=== PATIENT | female | born 1995 | race Caucasian/White ===

== ENCOUNTER 2022-01-27 08:00 | Outpatient (NON) | payer OTHER, SELFPAY | END 2022-01-28 10:13 | disposition home or self-care (01) | PROVIDERS: Visit Provider Nurse Practitioner | DX: D22.5 Melanocytic nevi of trunk (principal) | CPT/HCPCS: 88305 ==

== ENCOUNTER → 2022-04-14 13:48 | Outpatient (CLI) | payer OTHER, SELFPAY ==
--- NOTE | ~2022-04-14 | US_ITS ---
EXAMINATION: US transvaginal DATE: 04/14/2022 14:14 INDICATION: Vaginal bleeding between periods. Pelvic pain. Comparison:No prior studies for comparison. TECHNIQUE: Multiple endovaginal sonographic images of the pelvis performed. FINDINGS: The uterus measures 7.4 x 3.3 x 4.5 cm. The endometrial complex measures 4 mm. The right ovary measures 4.4 x 2.6 x 2.6 cm and the left ovary measures 2.3 x 1.2 x 2.1 cm. There ar e small follicles in each ovary. Normal doppler signal in both ovaries. There is free fluid in the right adnexa. There are no abnormal masses seen on either side. IMPRESSION: 1. Unremarkable pelvic ultrasound. Reviewed, dictated and finalized at location A. MACHINE SETUP OPERATOR
== END ==
PROVIDERS: PCP Family Medicine; Visit Provider Nurse Practitioner
DX: R10.2 Pelvic and perineal pain (principal)
CPT/HCPCS: 76830

== ENCOUNTER → 2022-12-14 09:59 | Outpatient (CLI) | payer OTHER, SELFPAY ==
--- NOTE | ~2022-12-14 | US_ITS ---
EXAMINATION: US OB transvaginal DATE: 12/14/2022 10:21 INDICATION: Size less than dates. TECHNIQUE: Real-time transvaginal pelvic ultrasound was performed. COMPARISON: None. FINDINGS: The uterus measures 8.7 x 6.8 x 10.1 cm. There is an intrauterine gestational sac. A yolk sac is iden tified. The crown rump length measures 3.7 cm, which correlates with an estimated gestational age of 10 weeks and 4 day(s) (+/-) 1 week(s) and 0 day(s). heart motion is identified measuring 175 beats per minute (bpm) by M-mode Doppler. There is a small subchorionic hematoma measuring 1.3 x 1.2 x 0.8 cm. The ovaries are not visualized. There is physiologic free fluid in the pelvis. IMPRESSION: 1. Single living intrauterine gestation with estimated date of delivery of 07/08/2023. 2. Small subchorionic hematoma. Reviewed, dictated and finalized at location E. IMPRESSION: 1. Single living intrauterine gestation with estimated date of delivery of 06/14. 2. Small subchorionic hematoma.
== END ==
PROVIDERS: PCP Advanced Practice Midwife; Visit Provider Advanced Practice Midwife
DX: O36.5930 Maternal care for other known or suspected poor fetal growth, third trimester, not applicable or unspecified (principal); Z3A.00 Weeks of gestation of pregnancy not specified
CPT/HCPCS: 76817

== ENCOUNTER → 2023-01-18 08:47 | Outpatient (CLI) | payer OTHER, SELFPAY ==
--- NOTE | ~2023-01-18 | US_ITS ---
EXAMINATION: US OB limited DATE: 01/18/2023 09:07 INDICATION: Maternal carrier for other specified problems, first trimester TECHNIQUE: Real-time ultrasound of the pelvis was performed. The interpreting radiologist was not pre sent for the study. COMPARISON: 12/14/2022 FINDINGS: There is a single living fetus in transverse lie. The placenta is left/anterior. There is a 2.0 x 1.4 cm hypoechoic area abutting the placenta. The measured cervical length is 3.3 cm. ca rdiac activity and movement are noted. heart rate is 143 beats per minute (bpm). The amni otic fluid index is subjectively normal. IMPRESSION: 1. Single living fetus in transverse lie. 2. Probable small subchorionic hematoma, not significantly changed. Reviewed, dictated and finalized at location B. LAYER
== END ==
PROVIDERS: PCP Advanced Practice Midwife; Visit Provider Advanced Practice Midwife
DX: O36.8910 Maternal care for other specified fetal problems, first trimester, not applicable or unspecified (principal); Z3A.00 Weeks of gestation of pregnancy not specified
CPT/HCPCS: 76815

== ENCOUNTER → 2023-02-16 09:43 | Outpatient (CLI) | payer OTHER, SELFPAY ==
--- NOTE | ~2023-02-16 | US_ITS ---
EXAMINATION: US OB /maternal detail DATE: 02/16/2023 10:15 INDICATION: Follow-up subchorionic hematoma TECHNIQUE: Multiple obstetric sonographic images performed. FINDINGS: Comparison to multiple prior studies sequentially, with oldest reviewed study dated 2022. There is a single living fetus in breech presentation. The placenta is posterior without placenta pr evia. Placental margin is 5.4 cm to the cervix. Cervical length is 2.5 cm. Amniotic fluid volume is s ubjectively normal. No subchorionic hematoma identified. cardiac activity and movement is noted with a heart rate of 147 BPM beats per minut e. The following anatomy was identified as normal: 4 chamber heart 3 vessel cord cord insertion kidneys urinary bladder stomach spine diaphragm ventricles cisterna magna cerebellum The following biometric data were obtained: BPD: 48mm corresponds to gestational age 20 weeks 3 days. Head circumference: 176 mm corresponds to gestational age 20 weeks 1 days. Abdominal circumference: 154 mm corresponds to gestational age 20 weeks 4 days. Femur length: 32 mm corresponds to gestational age 20 weeks 0 days. Head circumference to abdominal circumference ratio: 1.14 (normal range for expected gestational age is 1.07-1.25). Estimated weight: 345 grams +/- 52 grams using Hadlock method. IMPRESSION: 1: Single living intrauterine with an estimated gestational age of 19weeks 5days by initial ultrasound measurements, with an EDC of 07/08/2023 in breech presentation. 2. Normal survey. Reviewed, dictated and finalized at location B. LE MAKER IMPRESSION: 1: Single living intrauterine with an estimated gestational age of 19 weeks 5days by initial ultrasound measurements, with an EDC of 07/08/2023 in shefali ech presentation. 2. Normal survey.
== END ==
PROVIDERS: PCP Nurse Practitioner; Visit Provider Nurse Practitioner
DX: O36.8910 Maternal care for other specified fetal problems, first trimester, not applicable or unspecified (principal)
CPT/HCPCS: 76805

== ENCOUNTER → 2023-03-09 08:15 | Outpatient (CLI) | payer OTHER, SELFPAY ==
--- NOTE | ~2023-03-09 | US_ITS ---
US OB limited 03/09/2023 08:52 Indication: Cervical shortening Procedure: High-resolution Limited obstetrical ultrasound utilizing transabdominal and transvaginal t echnique Comparison: Ultrasound dated 02/16/2023 Findings: There is a single living intrauterine in breech presentation. heart rate is 162 BPM. Placenta is posterior measuring 5.5 cm to the internal cervical os. Amniotic fluid volume i s subjectively normal. Cervical length measures 3.6 cm. Impression: 1: Cervical length measures 3.6 cm. Reviewed, dictated and finalized at location L. ARE CASE WORKER Impression: 1: Cervical length measures 3.6 cm.
== END ==
PROVIDERS: PCP Advanced Practice Midwife; Visit Provider Advanced Practice Midwife
DX: O26.879 Cervical shortening, unspecified trimester (principal); Z3A.00 Weeks of gestation of pregnancy not specified
CPT/HCPCS: 76815

== ENCOUNTER 2023-05-22 08:21 | Observation (INO) | payer OTHER, SELFPAY ==
--- NOTE | ~2023-05-22 | US_ITS ---
US OB limited DATE: 05/22/2023 10:33 INDICATION: Amniotic fluid leakage. TECHNIQUE: Real-time imaging and Doppler analysis COMPARISON: 03/09/2023 Limited obstetrical ultrasound examination FINDINGS: Live marcum intrauterine gestation, fetus in vertex presentation with heart rate o f 142 bpm. Posterior left placenta. Amniotic fluid index measures 10.4 cm, at lower normal range. (5th percentile CHANO: 8.3 cm; 95th perce ntile: 24.5 cm). IMPRESSION: Low normal amniotic fluid index: 10.4 cm Reviewed, dictated and finalized at Location A. Reviewed, dictated and finalized at location A. R TUNE UP SPECIALIST
[2023-05-22 08:42] VITALS: BP 126/85; PULSE 85; RESP 16; TEMP 36.6
[2023-05-22 09:00] VITALS: BMI 27.0
--- NOTE | 2023-05-22 09:00 | OBADM ---
This patient, Edilma Live, admitted to the OB room 116 for observation. Patient/family oriented to hospital policies and general routines including ID bracelet, bed and alarms, visiting hours, pain management, procedures, bathroom and other care routines, personal items, smoking policy, room service/diet, and visiting hours. Patient/Family are encouraged to report perceived risks to care and to ask questions if they do not understand what they are told or what they should do.
[2023-05-22 09:30] VITALS: BP 121/80; PULSE 77
[2023-05-22 11:00] VITALS: BP 115/65; PULSE 85
[2023-05-22 11:30] VITALS: BP 115/65; PULSE 80
--- NOTE | 2023-05-23 10:31 | PM.OBTRLD ---
OB - Triage/Final Diagnosis Visit Information Date of evaluation: 05/22/23 Reason for evaluation: other (vaginal bleeding) Comments/Additional reasons for admission: I have assessed the risk for this patient, Edilma Live, and determined that she would benefit from observation care. Evaluation Vital signs: Vital Signs - 24 hr 05/22/23 11:00 05/22/23 11:30 Pulse Rate 85 80 Blood Pressure 115/65 115/65 Comments: Pt presented with vaginal bleeding this am. No bleeding after arrival to unit. Reactive NST. Ultrasound and CHANO WNL. SVE closed (no bleeding on RN's glove), no evidence of ROM or labor. Good movement. No pain. DC home with bleeding, movement, and PTL precautions.
== END 2023-05-22 11:58 | disposition home or self-care (01) ==
PROVIDERS: Admitting Provider Obstetrics & Gynecology Gynecology; PCP Family Medicine; Visit Provider Obstetrics & Gynecology Gynecology
DX: O46.93 Antepartum hemorrhage, unspecified, third trimester (principal); Z3A.33 33 weeks gestation of pregnancy
CPT/HCPCS: 76815; 84112; G0378; G0379

== ENCOUNTER 2023-06-16 09:39 | Outpatient (CLI) | payer OTHER, SELFPAY ==
[2023-06-16] VITALS (8 sets, daily range): BP systolic 104–128; BP diastolic 62–78; PULSE 86–91; BMI 27.2
[2023-06-16 10:09] LABS: Basophils Percent Auto 0.2 % (0.2-1.2); Eosinophils Percent Auto 0.3 % (0-4.4); Hemoglobin 10.9 g/dL (12.0-15.0); Immature Granulocyte Absolute 0.04 K/mm3 (0.00-0.031); Immature Granulocyte Percent A 0.5 % (0-0.5); Lymphocytes Percent Auto 16.1 % (18.3-44.2); Mean Corpuscular HGB Conc 32.1 g/dl (32-36); Mean Corpuscular Hemoglobin 29.4 pg (26-34); Mean Corpuscular Volume 91.6 fl (80-100); Mean Platelet Volume 9.8 fl (7.4-10.4); Monocytes Absolute Auto 0.6 K/mm3 (0.1-0.6); Monocytes Percent Auto 6.5 % (2.6-8.5); Neutrophils Absolute Auto 6.7 K/mm3 (1.3-6.7); Neutrophils Percent Auto 76.4 % (45.5-73.1); Platelet Count Result 266 k/mm3 (150-375); Red Blood Count 3.71 M/mm3 (4.2-5.4); Red Cell Distribution Width 12.8 % (11.5-14.5); White Blood Count 8.7 K/mm3 (4.5-10.0)
[2023-06-16 10:23] LABS: Creatinine Urine 15.7 mg/dL; Total Protein Urine Random 11 mg/dL
[2023-06-16 10:25] LABS: Appearance Urine Clear (Clear); Bacteria Urine 1+ /hpf; Bilirubin Urine Negative (Negative); Blood Urine Negative (Negative); Color Urine Yellow (Yellow); Glucose Urine UA Negative (Negative); Ketones Urine Negative (Negative); Leukocyte Esterase Ur Trace LEU/UL (Negative); Need Manual Microscopic Reviewed; Nitrate Urine Negative (Negative); Non Pathogenic Casts 0-2; Protein Urine Negative (Negative); RBC Urine 0-2 /hpf (0-2); Squamous Epithelial Cell Urine Occasional /hpf (Few); Urobilinogen Urine 0.2 mg/dL (<2.0); pH Urine 6.5 (5.0-9.0)
[2023-06-16 10:27] LABS: Alanine Aminotransferase 13 U/L (6-35); Albumin Level 3.8 g/dL (3.5-5.1); Alkaline Phosphatase 163 U/L (38-126); Anion Gap 4 mmol/L (4-12); Aspartate Amino Transferase 20 U/L (14-36); Bilirubin,Total 0.3 mg/dL (0.2-1.3); Blood Urea Nitrogen 9 mg/dL (7-17); Carbon Dioxide 25 mmol/L (22-30); Chloride 104 mmol/L (98-107); Estimated CRCL calculation 137 ml/min; Estimated Glomerular Filt Rate > 60; Glucose 107 mg/dL (65-110); Potassium 3.9 mmol/L (3.4-5.0); Sodium 133 mmol/L (137-145); Uric Acid 3.6 mg/dL (2.5-7.5)
[2023-06-16 10:28] LABS: Specific Grav Ur 1.004 (1.001-1.035)
[2023-06-16 10:56] LABS: Add Urine Microscopic? YES
--- NOTE | 2023-06-16 16:31 | PM.OBTRLD ---
OB - Triage/Final Diagnosis Visit Information Date of evaluation: 06/16/23 Comments/Additional reasons for admission: I have assessed the risk for this patient, Edilma Live, and determined that she would benefit from observation care. Evaluation Laboratory results: Laboratory Tests 06/16/23 09:59 WBC 8.7 RBC 3.71 L Hgb 10.9 L Hct 34.0 L MCV 91.6 MCH 29.4 MCHC 32.1 RDW 12.8 Plt Count 266 MPV 9.8 Immature Gran % (Auto) 0.5 Neut % (Auto) 76.4 H Lymph % (Auto) 16.1 L [place] % (Auto) 6.5 Eos % (Auto) 0.3 Baso % (Auto) 0.2 Lymph # (Auto) 1.40 [place] # (Auto) 0.6 Eos # (Auto) 0.0 Baso # (Auto) 0.0 Abs Immat Gran (auto) 0.04 H Absolute Neuts (auto) 6.7 Absolute Nucleated RBC 0.000 Nucleated RBC % 0.0 Sodium 133 L Potassium 3.9 Chloride 104 Carbon Dioxide 25 Anion Gap 4 L BUN 9 Creatinine 0.50 L Estim Creat Clear Calc 137 Estimated GFR > 60 Glucose 107 Uric Acid 3.6 Calcium 9.0 Total Bilirubin 0.3 AST 20 ALT 13 Alkaline Phosphatase 163 H Total Protein 7.0 Albumin 3.8 Urine Color Yellow Urine Appearance Clear Urine pH 6.5 Ur Specific [place] 1.004 Urine Protein Negative Urine Glucose (UA) Negative Urine Ketones Negative Ur Blood (Man) Negative Urine Nitrate Negative Urine Bilirubin Negative Urine Urobilinogen 0.2 Add Ur Microanalysis Reviewed Leukocyte Esterase Rfl Trace H Urine RBC 0-2 Urine WBC 6-10 H Ur Squamous Epith Cells Occasional Urine Bacteria 1+ H Urine Casts 0-2 U Random Total Protein 11 Urine Creatinine 15.7 Protein/Creat Ratio 2 0.70 H Vital signs: Vital Signs - 24 hr 06/16/23 10:07 06/16/23 10:19 06/16/23 10:30 Pulse Rate 89 91 91 Blood Pressure 128/78 123/76 104/62 Blood Pressure [Right Arm] 06/16/23 10:45 06/16/23 11:00 06/16/23 11:15 Pulse Rate 87 86 89 Blood Pressure 115/67 118/68 121/71 Blood Pressure [Right Arm] 06/16/23 10:13 06/16/23 11:30 Pulse Rate 90 87 Blood Pressure Blood Pressure [Right Arm] 128/78 121/71 Comments: VSS, all Bps WNL per RN. NST reactive per RN. Labs WNL, (UPC 0.7 however neg protein on UA). Plan 24 hour urine protein collection to be brought back 06/17/23 and BP check with NST at that time.
== END 2023-06-16 11:38 | disposition home or self-care (01) ==
LOC: ANHOBOP 09:42 → ANHOBPP 09:43
PROVIDERS: Visit Provider Advanced Practice Midwife
DX: O13.9 Gestational [pregnancy-induced] hypertension without significant proteinuria, unspecified trimester (principal); Z3A.00 Weeks of gestation of pregnancy not specified
CPT/HCPCS: 36415; 59025; 80053; 81001; 81050; 82570; 82575; 84156; 84550; 85025; 87086; 99199

== ENCOUNTER 2023-06-17 10:28 | Outpatient (RCR) | payer OTHER, SELFPAY ==
[2023-05-04 07:05] VITALS: BP 118/68; PULSE 83
[2023-06-17 11:05] VITALS: BP 119/68; PULSE 90
== END 2023-08-02 23:59 | disposition home or self-care (01) ==
LOC: ANHOBOP 10:28
PROVIDERS: PCP Family Medicine; Visit Provider Obstetrics & Gynecology Gynecology
DX: O36.8130 Decreased fetal movements, third trimester, not applicable or unspecified (principal); Z3A.30 30 weeks gestation of pregnancy; Z3A.37 37 weeks gestation of pregnancy
CPT/HCPCS: 59025

== ENCOUNTER 2023-06-17 10:28 | Outpatient (CLI) | payer OTHER, SELFPAY ==
[2023-06-17 10:38] VITALS: BMI 27.2
[2023-06-17 11:16] LABS: Collection Time Urine 24 HOURS
[2023-06-17 11:19] LABS: Total Volume 24 Hour Urine 1900 ml
[2023-06-17 11:25] LABS: Creatinine Clearance Urine 138.4 ml/min (75-125); Creatinine Urine 57.6 mg/dL; Patient Weight 174 Lbs; Total Protein Urine 24 Hr 133 mg/24hr (28-141); Total Protein Urine Random 7 mg/dL
== END 2023-06-17 10:29 | disposition home or self-care (01) ==
LOC: ANHOBOP 10:35
PROVIDERS: Visit Provider Advanced Practice Midwife
DX: Z34.90 Encounter for supervision of normal pregnancy, unspecified, unspecified trimester (principal); Z3A.00 Weeks of gestation of pregnancy not specified
CPT/HCPCS: 81050; 82575; 84156

== ENCOUNTER 2023-07-05 17:04 | Inpatient (IN) | payer OTHER, SELFPAY ==
[2023-07-05] VITALS (16 sets, daily range): BP systolic 110–133; BP diastolic 62–82; PULSE 67–92; TEMP 36.4–36.5; BMI 27.8
--- NOTE | 2023-07-05 17:30 | P.PNAN_ITS ---
Anes - Eval Pre Procedure Procedure: labor epidural Date/Time: 07/05/23 17:30 Pre Op Diagnosis: Induction of Labor Patient Data Age: 28 Gender: F Height: Weight: Allergies Allergy/AdvReac Type Severity Reaction Status Date / Time No Known Allergies Allergy Verified 06/08/23 12:19 Home Medications Medication Instructions Recorded Confirmed Type ergocalciferol (vitamin D2) 1,250 50,000 unit PO WEEKLY 05/22/23 06/16/23 History mcg (50,000 unit) capsule ferrous sulfate 325 mg (65 mg 325 mg PO BID 05/22/23 06/16/23 History iron) tablet vit no.95-ferrous 1 tablet PO DAILY 05/22/23 06/16/23 History fumarate 28 mg-folic acid 800 mcg tablet () Patient hx anesthesia problems: none Family hx anesthesia problems: none Results Review: All pre-operative results and documents have been reviewed as part of the pre- operative evaluation. PMF Family History Family History Other No pertinent family history Social History Social History Substance use: never Spiritual care concerns: No Exam Day of Procedure 07/05/23 17:30 Patient weight: overweight Heart: regular rate and rhythm Lungs: normal air movement Airway: Mallampati scale Neurological: alert and oriented
[2023-07-05 18:02] LABS: Basophils Percent Auto 0.3 % (0.2-1.2); Eosinophils Percent Auto 0.3 % (0-4.4); Immature Granulocyte Absolute 0.05 K/mm3 (0.00-0.031); Immature Granulocyte Percent A 0.5 % (0-0.5); Lymphocytes Absolute Auto 1.86 K/mm3 (0.9-3.2); Lymphocytes Percent Auto 17.6 % (18.3-44.2); Mean Corpuscular HGB Conc 33.3 g/dl (32-36); Mean Corpuscular Hemoglobin 29.6 pg (26-34); Mean Corpuscular Volume 88.7 fl (80-100); Mean Platelet Volume 10.2 fl (7.4-10.4); Monocytes Absolute Auto 0.7 K/mm3 (0.1-0.6); Monocytes Percent Auto 6.9 % (2.6-8.5); Neutrophils Absolute Auto 7.9 K/mm3 (1.3-6.7); Neutrophils Percent Auto 74.4 % (45.5-73.1); Platelet Count Result 260 k/mm3 (150-375); Red Blood Count 3.72 M/mm3 (4.2-5.4); Red Cell Distribution Width 13.1 % (11.5-14.5); White Blood Count 10.6 K/mm3 (4.5-10.0)
[2023-07-05] MEDS: miSOPROStol 25 MCG TABLET SUBLINGUAL (18:09)
[2023-07-05] MEDS: miSOPROStol 25 MCG TABLET 50 MCG SUBLINGUAL (22:29)
[2023-07-06] VITALS (125 sets, daily range): BP systolic 91–144; BP diastolic 53–95; PULSE 58–136; RESP 16; TEMP 36.6–37.3; O2SAT 94–100
[2023-07-06] MEDS: LACTATED RINGERS 1,000 ML 125 ML IV CONT ×2 (01:36→02:18)
[2023-07-06] MEDS: ONDANSETRON INJ 4 MG/2 ML VIAL IV PUSH (02:16)
[2023-07-06] MEDS: fentaNYL CITRATE INJ (*CRX) 100 MCG/2 ML VIAL 50 MCG IV PUSH (02:16)
[2023-07-06] MEDS: OXYTOCIN 30 UNITS/NS 500 ML 30 UNITS/500 ML BAG IV CONT (03:20)
--- NOTE | 2023-07-06 07:49 | WPDOBADMIT ---
Obstetrics - Admit Note Admission Note: record reviewed. No pertinent additions to the history and/or any subsequent changes in the physical findings that are not consistent with the expected course of the were found. Additions to the history and/or subsequent changes in the physical findings follow. None.
--- NOTE | 2023-07-06 07:49 | PM.OBPNLAB ---
Pain Control Date/time seen: Called overnight at 0436 and 0644 with updates on pt progress. No interventions required overnight. 07/06/23 07:15- CNM to bedside Pain control: tolerating well and epidural Pelvic Exam Dilation (cm): 10 Effacement (%): 100 station: +2 Comments: pushing with ctx Contractions Monitor mode: External Contraction pattern: Regular Contraction phase: Contraction Contraction intensity: Strong/Firm Status status: Category ll Comments: Cat 1 prior to pushing Assessment and Plan Assessment: active labor Plan: continuous present management Comments: Pt pushing on CNM arrival. Pushing well. Anticipate vaginal . Dr. Nielsen updated.
--- NOTE | 2023-07-06 07:51 | P.PCNOB_ITS ---
OB - Vaginal Delivery Note Procedure Delivery date: 07/06/23 Induction method: Per Misoprostol Protocol and Per Pitocin Protocol Delivery augmentation: Pitocin Delivery monitor: External FHT and External Uterine Route of delivery: Episiotomy description: None Laceration Description: Perineal - 2nd Degree, Vaginal (sidewall x 2) and Labial (left) Delivery repair: vicryl Specimen: No Quantitative Blood Loss (ml): 225 Anesthesia type: Epidural Disposition: Floor Complications: No immediate complications Narrative: Edilma arrived for elective induction of labor. She received 2 doses of Cytote c followed by Pitocin. Her membranes ruptured spontaneously. She make which changed to complete dilation and pushed well with contractions. She brought the head to a complete crown after the delivery of the head there was good restitution and easy delivery of the anterior and posterior shoulders. The was placed on the maternal abdomen and dried and stimulated by nursery staff. Just before 1 minute of life, the cord was doubly clamped and cut. The baby was taken to the warmer. Cord blood, cord segment, and cord gases were obtained. Bilateral vaginal sidewall tears as well as a second-degree laceration repaired in the usual fashion. There was excellent hemostasis. Uterine tone remained firm throughout. All delivery counts correct. Baby Date of : 07/06/23 Time of : 08:18 Weeks of gestation at delivery: 39 gender: Female Weight (pounds): 7 Weight (ounces): 4 presentation: vertex position: Left Occiput Anterior Placenta delivery description: Spontaneous Cord Vessel Description: 3 Vessels and Delayed Cord Clamping score one minute: 7 score five minutes: 9
[2023-07-06] MEDS: OXYTOCIN 30 UNITS/NS 500 ML 30 UNITS/500 ML BAG 125 UNITS IV CONT (08:52)
--- NOTE | 2023-07-06 09:10 | PM.OBDSVD ---
DS: Admitting Diagnosis Discharge Date 07/07/23 Admitting Diagnosis 28 y.o. at term . Elective IOL Hx Anxiety and Depression. Anemia Hx abnormal pap DS: Discharge Diagnosis Discharge Diagnosis (1) (normal spontaneous vaginal delivery): Code(s): O80 - Encounter for full-term uncomplicated delivery Status: Acute (2) Mother currently breast-feeding: Code(s): Z39.1 - Encounter for care and examination of lactating mother Status: Acute OB - DS: Summary Hospital Course Hospital Course: Uncomplicated OB Procedures : Ultrasound OB Procedures Intrapartum: Spontaneous Vag Delivery OB Procedures: : None Peripartum Data Infant Delivery Method: Natural Vaginal Laceration Description: Perineal - 2nd Degree, Vaginal (sidewall x 2) and Labial (left) Episiotomy description: None complications: none Status at Discharge Functional status at discharge: independent ambulation Overall status at discharge: patient is progressing back to baseline Time Spent with Patient Time attestation: Total time spent providing and/or coordinating discharge services: Exam Narrative: Alert and oriented. Mood is pleasant and cooperative. Perineum with minimal edema. Fundus firm and below umbilicus. Const: General: cooperative, healthy appearing, no acute distress and alert Orientation/consciousness: patient oriented x3 Limitations: no limitations Chest: Other: Nipples tender Resp: Effort & Inspection: normal respiratory effort and able to speak in complete sentences Auscultation: clear to auscultation bilaterally Cardio: Rate: regular rate GI: Inspection: normal to inspection Auscultation: normal bowel sounds : General: Yes bladder normal to palpation External Female Exam: other (lochia WNL) Bimanual exam- vagina & uterus: bladder normal to palpation Other: Fundus firm and below U Skin: General skin exam: normal color and no rashes or lesions noted Neuro: General: patient oriented x3 and moves all extremities Cognition (Neuro): normal cognition Extrem: General: normal to inspection and no calf tenderness Psych: Appearance: grossly normal Mental Status: mental status grossly normal Affect: normal affect Thought process: Normal thought process present DS: Data Data Completed and Pending Labs on day of discharge: Labs from last 24 hours 07/05/23 17:45 WBC 10.6 H RBC 3.72 L Hgb 11.0 L Hct 33.0 L MCV 88.7 MCH 29.6 MCHC 33.3 RDW 13.1 Plt Count 260 MPV 10.2 Immature Gran % (Auto) 0.5 Neut % (Auto) 74.4 H Lymph % (Auto) 17.[address] [place] % (Auto) 6.9 Eos % (Auto) 0.3 Baso % (Auto) 0.3 Lymph # (Auto) 1.86 [place] # (Auto) 0.7 H Eos # (Auto) 0.0 Baso # (Auto) 0.0 Abs Immat Gran (auto) 0.05 H Absolute Neuts (auto) 7.9 H Absolute Nucleated RBC 0.000 Nucleated RBC % 0.0 RPR Pending Blood Type O Positive Antibody Screen Negative Discharge Plan Discharge Attending physician on discharge: Fabiola Nielsen Discharging Clinician: Gela Villagomez Anticipated Discharge Date/Time: 07/07/23 13:00 Patient Disposition: Home, Self-Care Activity: may drive after 2 weeks and pelvic rest Diet: as tolerated and regular Wound Care Instructions: follow printed instructions Discharge Instructions: Continue taking your vitamin and any other supplements as previously directed (Examples: Iron, Vitamin D). You may take Tylenol 1000mg over the counter every 6 hours as needed for pain. Do not exceed 4000mg of Tylenol daily. You may continue using tucks pads and dermoplast spray if needed for a few more days. Depression Notify provider for signs or symptoms. These may include- Feelings: Feeling anxious, angry, hopeless, guilt, or loss of interest/pleasure in activities you normally enjoy. Mood swings or panic attacks. General: Extreme fatigue, loss of your appetite,
[2023-07-06] MEDS: IBUPROFEN 600 MG TABLET PO ×2 (10:30→20:22)
[2023-07-06] MEDS: BENZOCAINE 20% AER SPR (*SP) 56 GM CAN 1 SPRAY TOPICAL (12:40)
[2023-07-06] MEDS: WITCH HAZEL 40 PADS 1 PAD TOPICAL (12:41)
[2023-07-06] MEDS: ACETAMINOPHEN 325 MG TABLET 650 MG PO (13:01)
--- NOTE | 2023-07-06 13:19 | OBPPTRN ---
1225 Patient transferred to post room #290 via W/C. Support person present. Oriented to unit, room, information board, rooming in, admission packet and security measures. Patient verbalizes understanding.
--- NOTE | 2023-07-06 13:47 | PC.NURSE ---
[id number] Introductions were made, then consulted with patient to assess needs related to . Nursery RN is present and is assisting mother with holding her breast and latching her infant to the left breast using cross cradle positioning. is latched effectively and when detaches there's a basilio on the areola where had been previously sucked. Mother works well with her infant latching to the right breast using a V-hold with her fingers using the cradle hold. Mother denies pain. Resources provided for services while inpatient on the PP floor.
--- NOTE | 2023-07-06 16:40 | PC.NURSE ---
[id number] Consulted with patient to assess needs related to . Encouraged understanding the benefits of skin to skin, responding to feeding cues, frequencies of feeding 8-12 times in 24 hours (approximately 2-3 hours), duration of feedings, milk production, intake/output feeding sheet and signs of adequate intake encouraging swallowing at the breast. Reviewed positioning and alignment, supporting breast, off-centered (asymmetrical latch) and leading with the chin with big, open, wide gape using the sandwich hold, then latched optimally to the left breast in cross cradle position. Education given to the mother of how to visualize the suckling (with good rocking jaw motion) swallows (dropping of the lower jaw) and how to listen for drinking at the breast (the ka sound) which infant demonstrated well. The was able to maintain latch without discomfort to mother. Nipple care reviewed with optimal latch, good positioning and using clean hands when touching her breast. Resources used to facilitate learning were used from the visual handouts/ tool/mom and baby guide. Mother voiced understanding of the education shared, to call for assistance if the does not latch or if there is discomfort with . Reported to the Primary RN.
[2023-07-06 17:14] LABS: Rapid Plasma Reagin Non-Reactive (NonReactive)
[2023-07-06] MEDS: POLYSACCHARIDE IRON COMPLEX 150 MG CAPSULE PO (20:22)
[2023-07-07 04:30] VITALS: BP 113/67; PULSE 70; RESP 16; TEMP 36.7; O2SAT 97
[2023-07-07 05:09] LABS: Hemoglobin 10.2 g/dL (12.0-15.0)
[2023-07-07 07:15] VITALS: BP 110/64; PULSE 71; RESP 16; TEMP 37.4; O2SAT 97
--- NOTE | 2023-07-07 07:35 | P.PNOB_ITS ---
OB - PN: Subj Subjective Date/time seen: 07/07/23 07:20 Interval history: Doing well. Urinating without difficulty. Denies passing any large clots. Denies dizziness with ambulating. Tolerating po food and fluids. Bonding with . Patient comments: pain well controlled Jordan baby status: doing well Jordan feeding status: breast and bottle feeding OB - PN: Obj Data Labs 07/07/23 04:55 Labs: Laboratory Results - last 24 hr 07/05/23 07/07/23 17:45 04:55 Hgb 10.2 L Hct 32.0 L RPR Non-reactive OB - PN A/P Assessment and Plan (1) (normal spontaneous vaginal delivery): Code(s): O80 - Encounter for full-term uncomplicated delivery Status: Acute (2) Mother currently breast-feeding: Code(s): Z39.1 - Encounter for care and examination of lactating mother Status: Acute Plan day: 1 Plan: discharge home Comments: Desires DC home today. Time Spent With Patient Time: Total time spent is greater than 50% in coordination of care (as documented) at patient's floor/unit and/or counseling patient: Review of Systems Review of Systems: All systems reviewed & are unremarkable except as noted in HPI and below Exam Narrative: Alert and oriented. Mood is pleasant and cooperative. Perineum with minimal edema. Fundus firm and below umbilicus. Const: General: cooperative, healthy appearing, no acute distress and alert Orientation/consciousness: patient oriented x3 Limitations: no limitations Chest: Other: Nipples tender Resp: Effort & Inspection: normal respiratory effort and able to speak in complete sentences Auscultation: clear to auscultation bilaterally Cardio: Rate: regular rate GI: Inspection: normal to inspection Auscultation: normal bowel sounds : General: Yes bladder normal to palpation External Female Exam: other (lochia WNL) Bimanual exam- vagina & uterus: bladder normal to palpation Other: Fundus firm and below U Skin: General skin exam: normal color and no rashes or lesions noted Neuro: General: patient oriented x3 and moves all extremities Cognition (Neuro): normal cognition Extrem: General: normal to inspection and no calf tenderness Psych: Appearance: grossly normal Mental Status: mental status grossly normal Affect: normal affect Thought process: Normal thought process pr esent
--- NOTE | 2023-07-07 09:36 | WPDANLDPN2 ---
Anes-Prog Note L&D Date/Time: 07/07/23 09:36 Neuro status: Neuro function grossly intact. Cardiovascular status: normal Respiratory status: normal Airway patency: baseline Mental status: baseline Post-Op hydration status: normal Vital Signs: Last Vital Signs Temp 37.4 C 07/07/23 07:15 Pulse 71 07/07/23 07:15 Resp 16 07/07/23 07:15 BP 110/64 07/07/23 07:15 Pulse Ox 97 07/07/23 07:15 O2 Del Method Room Air 07/06/23 19:30 Pain score (VAS): 0 Post-procedural complaints: none Patient feedback: Patient satisfied with anesthetic care.
[2023-07-07] MEDS: MULTIVIT/MIN/PREN/FOL AC/IRON TABLET 1 TAB PO (11:01)
--- NOTE | 2023-07-07 16:28 | PC.NURSE ---
[id number] Purposefully rounded to assess for needs. Mother shared that she has decided to pump and feed EBM to her infant and has supplemented with 3 formula bottles during the night. Infant has had appropriate feedings in the last 24 hours meets the outcomes for weight, output, blood sugar and jaundice at this time. Reinforced understanding of milk production, transition of milk, signs of adequate intake, transition of stool, prevention/relief of engorgement, plugged ducts, mastitis, responsive watching for feeding cues, the different methods of stimulating infant to breastfeed 1-3 hours after the start of the last feeding, community resources, and when to call a provider using the resource of the feeding sheet along with the mom and baby guide. Mother voiced understanding of the information shared, is confident to continue feeding her infant at home, when to call for assistance, denies any additional assistance or education at this time. Reported to the Primary RN.
--- NOTE | 2023-07-07 16:59 | PC.NURSE ---
1100 Patient viewed the discharge video Mother & Baby Care, The First Two Weeks . Patient was given the opportunity and encouraged to ask questions. Patient verbalized understanding of information shared and has been given the mother/baby guide for home reference.
[2023-07-09 11:24] VITALS: BP 124/71; PULSE 78; RESP 18; TEMP 36.8; O2SAT 100
== END 2023-07-07 15:35 | disposition home or self-care (01) | DRG 807 ==
LOC: ANHLDR 07-06 09:12 → ANHOB2 07-06 12:43
PROVIDERS: Advanced Practice Midwife; Admitting Provider Obstetrics & Gynecology Gynecology; PCP Family Medicine; Visit Provider Obstetrics & Gynecology Gynecology
DX: O99.02 Anemia complicating childbirth (principal); Z37.0 Single live birth; O70.1 Second degree perineal laceration during delivery; O99.344 Other mental disorders complicating childbirth; F41.8 Other specified anxiety disorders; D64.9 Anemia, unspecified; Z3A.39 39 weeks gestation of pregnancy
CPT/HCPCS: 36415; 85014; 85018; 85025; 86592; 86850; 86900; 86901; A9270; J2405; J2590; J2795; J3010; J7120

== ENCOUNTER 2023-10-27 09:24 | Emergency (ER) | payer OTHER, SELFPAY ==
--- NOTE | ~2023-10-27 | US_ITS ---
Limited ABDOMINAL ULTRASOUND Ordering provider: Trent Monge PA-C History: . Epigastric pain with eating . Comparison: None. FINDINGS: LIVER: Normal size and echotexture. The liver measures 15.8 cm. No focal hepatic lesions or perihepat ic fluid collections are identified. Normal flow of the portal vein. GALLBLADDER: Unremarkable. No evidence for stones, sludge, gallbladder wall thickening or pericholecy stic fluid collections. Wall measures 2.3 mm. A negative sonographic Merrill's sign was noted. BILIARY DUCTS: No evidence for intra or extrahepatic biliary dilation. Common bile duct measures 3.3 mm in diameter which is within normal limits. PANCREAS: Normal echotexture and size. SPLEEN: Normal size, echotexture and contour and measures cm in length. KIDNEYS: Right measures 11.1x 3.9 x 4.2 cm. there is no evidence for hydronephrosis, solid renal mass , renal calculi or perinephric fluid collections. No renal cysts. FREE FLUID: None. IMPRESSION: Unremarkable limited ultrasound of the abdomen. Reviewed, dictated and finalized at location A.
--- NOTE | ~2023-10-27 | XR_ITS ---
XR chest 2V Ordering provider: Elisabet Bains MD History: 28 years Female with . LOWER CHEST PAIN/UPPER ABD PAIN, HX ANXIETY . Comparison: None. FINDINGS: MEDIASTINUM: The cardiac silhouette is not enlarged. LUNGS: No infiltrates, effusions or pneumothorax. OTHER: No free air under the diaphragm. IMPRESSION: No acute cardiopulmonary pathology. Reviewed, dictated and finalized at location A.
--- NOTE | 2023-10-27 09:25 | ECG_ITS ---
Test Date: 2023-10-27 09:30:31 Measurements Intervals [place] Rate: 116 P: 85 ND: 160 QRS: 102 QRSD: 84 T: 69 QT: 341 QTc: 475 Interpretive Statements SINUS TACHYCARDIA MARKED RIGHT AXIS DEVIATION [QRS AXIS > 100] NONSPECIFIC ST & T-WAVE ABNORMALITY No previous ECG available for comparison Electronically Signed On 10-27-2023 09:31:38 CDT by Eladia Sampson M.D.
[2023-10-27 09:32] VITALS: BP 123/74; PULSE 100; RESP 16; TEMP 36.4; O2SAT 100
[2023-10-27 09:46] LABS: Basophils Percent Auto 0.3 % (0.2-1.2); Eosinophils Absolute Auto 0.1 K/mm3 (0-0.3); Eosinophils Percent Auto 0.9 % (0-4.4); Hematocrit 37.6 % (37.0-47.0); Hemoglobin 12.4 g/dL (12.0-15.0); Immature Granulocyte Absolute 0.01 K/mm3 (0.00-0.031); Immature Granulocyte Percent A 0.1 % (0-0.5); Lymphocytes Absolute Auto 1.64 K/mm3 (0.9-3.2); Lymphocytes Percent Auto 23.4 % (18.3-44.2); Mean Corpuscular Hemoglobin 29.2 pg (26-34); Mean Corpuscular Volume 88.7 fl (80-100); Mean Platelet Volume 10.1 fl (7.4-10.4); Monocytes Absolute Auto 0.3 K/mm3 (0.1-0.6); Monocytes Percent Auto 4.3 % (2.6-8.5); Platelet Count Result 330 k/mm3 (150-375); Red Blood Count 4.24 M/mm3 (4.2-5.4); Red Cell Distribution Width 12.4 % (11.5-14.5)
[2023-10-27 09:55] LABS: Alanine Aminotransferase 13 U/L (6-35); Albumin Level 4.8 g/dL (3.5-5.1); Alkaline Phosphatase 90 U/L (38-126); Anion Gap 14 mmol/L (4-12); Aspartate Amino Transferase 20 U/L (14-36); Bilirubin,Total 0.3 mg/dL (0.2-1.3); Blood Urea Nitrogen 10 mg/dL (7-17); Calcium 9.7 mg/dL (8.4-10.2); Carbon Dioxide 23 mmol/L (22-30); Chloride 104 mmol/L (98-107); Estimated CRCL calculation 116 ml/min; Estimated Glomerular Filt Rate > 60; Glucose 105 mg/dL (65-110); Lipase 66 U/L (23-300); Potassium 3.9 mmol/L (3.4-5.0); Sodium 141 mmol/L (137-145)
[2023-10-27 10:13] LABS: INR 0.9; Troponin I < 0.012 ng/mL (0.000-0.034)
[2023-10-27 10:14] LABS: Partial Thromboplastin Time 30.8 Seconds (22.3-36.8)
[2023-10-27 11:01] VITALS: BP 122/79; PULSE 72; RESP 12; O2SAT 100
--- NOTE | 2023-10-27 11:13 | ED.CHESTPAIN ---
HPI - Chest Pain General Chief Complaint: Chest Pain Stated Complaint: chest pain caused by anxiety Time Seen by Provider: 10/27/23 10:54 Source: patient Mode of arrival: ambulatory Limitations: no limitations History of Present Illness HPI narrative: This is a 28-year-old female who presents to the ED for chief complaint of chest pain and abdominal pain. States that she has had abdominal pain over the last several months, worse in the epigastrium. States she was recently started on omeprazole and is still waiting for that to kind of kick in. Pain is worsened with eating anything. associated nausea but no vomiting. s/p delivery of 1st child in June of 2023 and has been dealing with a lot of anxiety. States that any time she feels ill it is very easy to go into a panic attack. States that she had a panic attack this morning and was having chest pain associated. States that it lasted for nearly 2 hours but has subsided at this point. Denies fevers, chills , cough back pain, numbness, weakness GI bleeding symptoms. Related Data Home Medications Medication Instructions Recorded Confirmed ergocalciferol (vitamin D2) 1,250 50,000 unit PO WEEKLY 05/22/23 06/16/23 mcg (50,000 unit) capsule ferrous sulfate 325 mg (65 mg 325 mg PO BID 05/22/23 06/16/23 iron) tablet vit no.95-ferrous 1 tablet PO DAILY 05/22/23 06/16/23 fumarate 28 mg-folic acid 800 mcg tablet () Allergies Allergy/AdvReac Type Severity Reaction Status Date / Time No Known Allergies Allergy Verified 06/08/23 12:19 Review of Systems Review of Systems: All systems as dictated in [facility] Family History Family History Other No pertinent family history Social History Social History Smoking status: Never smoker Second hand tobacco smoke exposure: No Substance use: never Do You Feel Safe in your Home?: Yes Lack of Transportation: No Lack of Food: Never True Current Housing: I Do Not Have Housing Concerned About Future Housing: No Difficulty Paying Gas/Electric Bills: No Difficulty Paying for Meds: No Currently Unemployed: No Education: Trade/Vocational Certificate Difficulty w/ Childcare or Family Care: No Spiritual care concerns: No Exam Narrative: GENERAL: Well-appearing, well-nourished, and in no acute distress. HEAD: Normocephalic, atraumatic. EYES: PERRLA and EOMI. ENT: Nares clear, no rhinorrhea or epistaxis. Mucous membranes moist. Oropharynx without tonsillar hypertrophy exudate or other lesions. NECK: Supple. No adenopathy or masses. CHEST: No respiratory distress. Clear to auscultation. No wheezes rales or rhonchi HEART: Regular rate and rhythm. No murmur heard. Normal peripheral pulses. ABDOMEN: Soft, nontender, nondistended, normal active bowel sounds. MSK: Normal range of motion. No edema. SKIN: Warm, dry, no rash. NEURO: Alert and oriented x4. No focal deficits. PSYCH: Normal mood and affect. Course Vital Signs Vital signs: Vital Signs Temperature 97.6 F 10/27/23 09:32 Pulse Rate 100 10/27/23 09:32 Respiratory Rate 16 10/27/23 09:32 Blood Pressure 123/74 10/27/23 09:32 Pulse Oximetry 100 10/27/23 09:32 Temperature 97.6 F 10/27/23 09:32 Pulse Rate 78 10/27/23 12:57 Respiratory Rate 16 10/27/23 12:57 Blood Pressure 122/72 10/27/23 12:57 Pulse Oximetry 98 10/27/23 12:57 MDM - Chest Pain MDM Narrative Medical decision making narrative: This is a 28-year-old female who presents to the ED for chief complaint of intermittent epigastric pain as well as a panic attack onset today. Vitals are normal. Exam is benign overall. No evidence of acute abdomen. She is well-appearing, panic attack subsided shortly after arrival. EKG showing initial sinus tachycardia but patient has remaine
[2023-10-27 12:03] LABS: Lipase 64 U/L (23-300)
--- NOTE | 2023-10-27 12:19 | ECG_ITS ---
Test Date: 2023-10-27 12:23:19 Measurements Intervals Reynolds Rate: 69 P: 77 AL: 161 QRS: 78 QRSD: 88 T: 62 QT: 384 QTc: 411 Interpretive Statements SINUS RHYTHM Compared to ECG 10/27/2023 09:30:31 Sinus tachycardia no longer present Electronically Signed On 10-27-2023 13:05:15 CDT by Eladia Sampson M.D.
[2023-10-27 12:49] LABS: Troponin I < 0.012 ng/mL (0.000-0.034)
[2023-10-27 12:57] VITALS: BP 122/72; PULSE 78; RESP 16; O2SAT 98
== END 2023-10-27 12:58 | disposition home or self-care (01) ==
PROVIDERS: Emergency Medicine; Emergency Provider Physician Assistant
DX: K29.70 Gastritis, unspecified, without bleeding (principal); F43.0 Acute stress reaction; R00.0 Tachycardia, unspecified; R94.31 Abnormal electrocardiogram [ECG] [EKG]
CPT/HCPCS: 36415; 71046; 76705; 80053; 83690; 84484; 85025; 85610; 85730; 93005; 99284